=== PATIENT | male | born 1975 | race Caucasian/White ===

== ENCOUNTER 2021-03-31 19:22 | Emergency (ER) | payer BC ==
[~2021-03-31] VITALS: Ht 177.8 cm; Wt 119.3 kg
[2021-03-31 20:05] LABS: ABSOLUTE BASOPHILS 0.1 thou/uL (0.0-0.2); ABSOLUTE EOSINOPHILS 0.2 thou/uL (0.0-0.7); ABSOLUTE LYMPHOCYTES 4.3 thou/uL (0.8-5.3); ABSOLUTE MONOCYTES 0.7 thou/uL (0.0-1.2); ABSOLUTE NEUTROPHILS 4.9 thou/uL (1.6-8.1); BASOPHILS 1.2 %; EOSINOPHILS 2.3 %; HEMATOCRIT 46.5 % (42.0-52.0); HEMOGLOBIN 16.3 gm/dL (14.0-18.0); MCH 30.4 pg (26.0-34.0); MCHC 35.1 g/dL (28.0-37.0); MCV 86.7 fL (80.0-100.0); MPV 7.6 fl. (7.2-11.1); NUCLEATED RBCS 0 /100WBC; PLATELET COUNT* 244 thou/uL (150-400); POLYS 47.5 %; RBC 5.36 mil/uL (4.50-6.00); RDW-CV 13.2 % (10.5-14.5); WBC 10.3 thou/uL (4.0-11.0)
[2021-03-31 20:13] LABS: CALCIUM 8.8 mg/dL (8.5-10.1); CREATININE 0.8 mg/dL (0.6-1.3); POTASSIUM 4.2 mmol/L (3.5-5.1)
[2021-03-31 20:17] LABS: ALBUMIN 3.3 g/dL (3.4-5.0); TOTAL BILIRUBIN 0.5 mg/dL (<0.1-1.0); TOTAL PROTEIN 7.6 g/dL (6.4-8.2)
[2021-03-31 21:20] LABS: URINE BILIRUBIN NEGATIVE (Negative); URINE BLOOD TRACE (Negative); URINE CLARITY TURBID; URINE COLOR YELLOW; URINE GLUCOSE-RANDOM 3+ (Negative); URINE KETONES 1+ (Negative); URINE LEUKOCYTES TRACE (Negative); URINE NITRITE NEGATIVE (Negative); URINE PROTEIN NEGATIVE (Negative); URINE UROBILINOGEN 0.2 E.U./dl (0.2-1.0)
[2021-03-31 21:31] LABS: MUCUS None Seen strn/LPF (None Seen); SQUAMOUS 4-10 Moderate /LPF (0-3); URINE WBC >25 Many /HPF (0-5); WBC CLUMPS Few (None Seen)
[2021-03-31 21:32] LABS: CASTS None Seen /LPF (None Seen); CRYSTALS None Seen /LPF (None Seen); URINE RBC None Seen /HPF (0-2); YEAST Present (None Seen)
[2021-03-31] MEDS ORDERED: METFORMIN HCL500 M3 PO (23:55)
[2021-04-01 00:04] VITALS: BP 110/70
--- NOTE | 2021-04-01 09:12 | EKG ---
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 04/01/21911 40 40 Yomi Alfred MD, FACC /EPI
== END 2021-04-01 00:04 | disposition home or self-care (01) ==
LOC: M.ERS 19:22
PROVIDERS: Physician Assistant
DX: E86.9 Volume depletion, unspecified (principal); E11.65 Type 2 diabetes mellitus with hyperglycemia; Z88.8 Allergy status to other drugs, medicaments and biological substances